=== PATIENT | female | born 1990 | race Caucasian/White ===

== ENCOUNTER 2020-07-25 15:48 | Emergency (ER) | payer OTHER ==
[~2020-07-25] VITALS: Ht 154.9 cm; Wt 46.3 kg
[2020-07-25] MEDS ORDERED: AUGMENTIN 875-1 EACH PO (17:42)
[2020-07-25] MEDS ORDERED: PERCOCET 5-3251 EACH PO (17:42)
[2020-07-25 18:01] VITALS: BP 102/65
== END 2020-07-25 18:01 | disposition home or self-care (01) ==
LOC: ER 15:48
DX: S02.19XA Other fracture of base of skull, initial encounter for closed fracture (principal); S80.212A Abrasion, left knee, initial encounter; S80.211A Abrasion, right knee, initial encounter; W10.8XXA Fall (on) (from) other stairs and steps, initial encounter; Y93.89 Activity, other specified; Y92.89 Other specified places as the place of occurrence of the external cause; Y99.8 Other external cause status